=== PATIENT | female | born 2000 | race Two or more races ===

== ENCOUNTER 2023-07-02 07:18 | Emergency (ER) | payer OTHER ==
[~2023-07-02] VITALS: Ht 167.6 cm; Wt 59.0 kg
[2023-07-02] MEDS ORDERED: ALLEGRA ALLERGY60 MG (07:29)
[2023-07-02 08:50] LABS: HEMATOCRIT 38.3 % (36.0-45.00); HEMOGLOBIN 13.1 g/dL (12.0-15.00); MEAN CELL VOLUME 92.3 fL (80.00-100.00); MEAN CORPUSCULAR HEMOGLOBIN 31.5 pg (27.00-32.0); MEAN CORPUSCULAR HGB CONC 34.1 g/dl (32.0-36.0); PLATELET COUNT 202 K/uL (150-450); RED BLOOD COUNT 4.15 M/uL (4.00-6.00); RED CELL DISTRIBUTION WIDTH 14.2 % (11.5-14.5)
[2023-07-02] MEDS ORDERED: OSEL75CA PO (09:22)
[2023-07-02] MEDS ORDERED: TUSNEL LIQUID178 ML PO (09:22)
== END 2023-07-02 09:44 | disposition home or self-care (01) ==
LOC: ER 07:18
PROVIDERS: General Practice
DX: J10.1 Influenza due to other identified influenza virus with other respiratory manifestations (principal); Z20.822 Contact with and (suspected) exposure to COVID-19

== ENCOUNTER 2023-09-06 10:56 | Outpatient (CLI) | payer OTHER ==
[~2023-09-06 10:56] MED LIST: ALLEGRA ALLERGY60 MG; OSEL75CA PO; TUSNEL LIQUID178 ML PO
== END 2023-09-06 11:14 | disposition home or self-care (01) ==
LOC: TOM 10:56
PROVIDERS: ATTEND Radiology Diagnostic Radiology
DX: J01.90 Acute sinusitis, unspecified (principal)

== ENCOUNTER 2024-12-17 09:51 | Outpatient (CLI) | payer OTHER ==
[2024-12-17 11:00] LABS: HEMATOCRIT 36.4 % (36.0-45.00); HEMOGLOBIN 12.4 g/dL (12.0-15.00); MEAN CELL VOLUME 92.4 fL (80.00-100.00); MEAN CORPUSCULAR HEMOGLOBIN 31.5 pg (27.00-32.0); MEAN CORPUSCULAR HGB CONC 34.1 g/dl (32.0-36.0); PLATELET COUNT 247 K/uL (150-450); RED BLOOD COUNT 3.94 M/uL (4.00-6.00); RED CELL DISTRIBUTION WIDTH 13.8 % (11.5-14.5)
[2024-12-17 11:28] LABS: INFLUENZA A AG NEGATIVE (NEGATIVE)
[2024-12-17 11:45] LABS: MYCOPLASMA PNEUMONIAE IGM NON REACTIVE (NO REACTIVE)
== END 2024-12-17 15:00 | disposition home or self-care (01) ==
LOC: LAB 09:51
PROVIDERS: ATTEND Radiology Diagnostic Radiology
DX: J18.9 Pneumonia, unspecified organism (principal)